=== PATIENT | female | born 1945 ===

== ENCOUNTER 2016-12-15 12:01 | Emergency (ER) | payer OTHER ==
[2016-12-15 12:59] VITALS: BMI 32.0
[2016-12-15 13:02] VITALS: BP 150/98; PULSE 93; RESP 18; TEMP 98; O2SAT 98
--- NOTE | 2016-12-15 14:06 | ED PDOC ---
Arrival/HPI - General Chief Complaint: Headache Time Seen by Provider: 12/15/16 14:05 Historian: Patient - History of Present Illness Narrative History of Present Illness (Text): 12/15/16 14:00 Sanjana Kumar is a 71 year old female, who presents to the emergency department complaining of lip chafing and buttocks pain. Patient reports the symptoms began two weeks ago and has had a subjective fever. Patient also notes having a steroid shot placed two weeks ago and is asking if they could be connected. Patient denies chest pain, sore throat, dysuria, pelvic rash, shortness of breath, headache, chills, cough, nausea, vomiting, diarrhea, abdominal pain, dizziness or other complaints. 12/15/16 17:54 Time/Duration: > week (2 weeks) Symptom Onset: Sudden Symptom Course: Unchanged Associated Symptoms (Text): fever, eye pain, and throat pain Past Medical History - Provider Review Nursing Documentation Reviewed: Yes - Infectious Disease Hx of Infectious Diseases: None - Tetanus Immunization Tetanus Immunization: Up to Date - Past Medical History Past Medical History: No Previous - Musculoskeletal/Rheumatological Hx Arthritis: Yes - Psychiatric Hx Depression: No Hx Emotional Abuse: No Hx Physical Abuse: No Hx Substance Use: No - Surgical History Hx Cholecystectomy: Yes Hx Orthopedic Surgery: Yes (gerardo knee, l wrist) - Anesthesia Hx Anesthesia: Yes Hx Anesthesia Reactions: No Hx Malignant Hyperthermia: No - Suicidal Assessment Feels Threatened In Home Enviroment: No Family/Social History - Physician Review Nursing Documentation Reviewed: Yes Family/Social History: Unknown Family HX Smoking Status: Never Smoked Hx Alcohol Use: No Hx Substance Use: No Hx Substance Use Treatment: No Allergies/Home Meds Allergies/Adverse Reactions: Allergies No Known Allergies Allergy (Verified 11/07/13 19:40) Home Medications: Home Meds Medication Instructions Recorded Confirmed DULoxetine [Cymbalta] 1 cap PO DAILY 12/15/16 12/15/16 Esomeprazole Magnesium [Nexium 1 tab PO DAILY 12/15/16 12/15/16 24Hr] Gabapentin [Neurontin] 1 cap PO DAILY 12/15/16 12/15/16 Hydrocodone/Acetaminophen 1 tab PO Q6H PRN 12/15/16 12/15/16 [Hydrocodone-Acetaminophen 325 mg-7 mg] Review of Systems - Review of Systems Constitutional: absent: Fevers Eyes: absent: Vision Changes, Photophobia, Eye Pain Respiratory: absent: SOB, Cough, Sputum, Wheezing Cardiovascular: absent: Chest Pain, Palpitations Gastrointestinal: absent: Abdominal Pain, Constipation, Diarrhea, Nausea, Vomiting, Anorexia Genitourinary Female: absent: Dysuria, Frequency Skin: Rash, Skin Lesions (R and L buttock) Neurological: absent: Headache Physical Exam Vital Signs Reviewed: Yes Vital Signs Temp Pulse Resp BP Pulse Ox 12/15/16 13:00 98.0 F 93 H 18 150/98 H 98 Temperature: Afebrile Blood Pressure: Hypertensive Pulse: Regular Respiratory Rate: Normal Appearance: Positive for: Well-Appearing, Non-Toxic, Comfortable Pain Distress: None Mental Status: Positive for: Alert and Oriented X 3 - Systems Exam Head: Present: Atraumatic, Normocephalic Pupils: Present: PERRL Extroacular Muscles: Present: EOMI Conjunctiva: Present: Normal Mouth: Present: Moist Mucous Membranes. No: Normal Lips (chapped lips on lateral sides) Neck: Present: Normal Range of Motion Respiratory/Chest: Present: Clear to Auscultation, Good Air Exchange. No: Respiratory Distress, Accessory Muscle Use Cardiovascular: Present: Regular Rate and Rhythm, Normal S1, S2. No: Murmurs Abdomen: Present: Normal Bowel Sounds. No: Tenderness, Distention, Peritoneal Signs Back: Present: Normal Inspection Upper Extremity: Present: Normal Inspection. No: Cyanosis, Edema Lower Extremity: Present: Normal Inspection. No: Edema Neurological: Present: GCS=15, CN II-XII Intact, Speech Normal Skin: Present: Warm, Dry, Erythematous (vesicle on erythematous space to left and right side of buttocks). No: Rashes Psychiatric: Present: Alert, Oriented x 3, Normal Insight, Normal Concentration Medical Decision Making ED Course and Treatment: 12/15/16 Impression: 71 year old female with vesicle on erythematous base on right and left side of buttocks. Was concerned about shingles but due to b/l nature, symptoms more consistent with herpes. No lesions in throat. Lips consistent with cheilosis. Patient instructed on the importance of PMD follow-up and is aware that I am concerned it is herpes Plan: -- Antiviral medication -- Reassess and disposition 12/15/16 17:58 - Medication Orders Current Medication Orders: Discontinued Medications Acyclovir (Zovirax) 400 mg PO STAT STA PRN Reason: Protocol Stop: 12/15/16 14:26 Last Admin: 12/15/16 15:05 Dose: 400 mg Ibuprofen (Motrin Tab) 800 mg PO STAT STA Stop: 12/15/16 14:27 Last Admin: 12/15/16 15:05 Dose: 800 mg - Scribe Statement The provider has reviewed the documentation as recorded by the Scribe 12/15/2016 Faiza Thakur Provider Malorieibe Attestation: All medical record entries made by the Scribe were at my direction and personally dictated by me. I have reviewed the chart and agree that the record accurately reflects my personal performance of the history, physical exam, medical decision making, and the department course for this patient. I have also personally directed, reviewed, and agree with the discharge instructions and disposition. Disposition/Present on Arrival - Present on Arrival Any Indicators Present on Arrival: No History of DVT/PE: No History of Uncontrolled Diabetes: No Urinary Catheter: No History of Decub. Ulcer: No History Surgical Site Infection Following: None - Disposition Have Diagnosis and Disposition been Completed?: Yes Diagnosis: Cheilosis, Rash Disposition: HOME/ ROUTINE Disposition Time: 14:28 Patient Plan: Discharge Condition: GOOD Additional Instructions: Follow up with PMD within 2 days for further evaluation. Apply vaseline to outer edges of lips. Take anti-viral for rash to buttock Prescriptions: Acyclovir 400 mg PO TID #30 tablet Referrals: Eli Aponte, [Primary Care Provider] - Follow up with primary Forms: WORK NOTE
== END 2016-12-15 15:05 | disposition home or self-care (01) ==
LOC: ED 12:01
DX: K13.0 Diseases of lips (principal); R21 Rash and other nonspecific skin eruption
CPT/HCPCS: 99285; J8499